=== PATIENT | male | born 1955 | race Caucasian/White ===

== ENCOUNTER 2018-07-12 06:45 | Observation (INO) | payer MEDICARE ==
[2018-07-12] VITALS (7 sets, daily range): BP systolic 169–185; BP diastolic 81–117
[~2018-07-12] VITALS: Ht 188 cm; Wt 142.6 kg
[2018-07-12 07:16] LABS: BASOPHILS % 0.4 % (0.0-1.0); EOSINOPHILS # (AUTO) 0.2 (0.0-0.4); EOSINOPHILS % 2.7 % (0.0-6.0); HEMATOCRIT 39.8 % (38.2-49.6); HEMOGLOBIN 14.1 g/dL (14.0-18.0); LYMPHOCYTES # (AUTO) 1.6 (1.0-3.2); LYMPHOCYTES % 20.5 % (18.0-39.1); MEAN CORPUSCULAR HEMOGLOBIN 30.1 pg (28-32); MEAN CORPUSCULAR HGB CONC 35.4 g/dL (31-35); MEAN CORPUSCULAR VOLUME 84.9 fL (81-99); MONOCYTES # (AUTO) 0.8 (0.2-0.8); MONOCYTES % 10.7 % (4.4-11.3); NEUTROPHILS # (AUTO) 5.1 (2.1-6.9); NEUTROPHILS % 65.2 % (38.7-80.0); PLATELET COUNT 196 x10e3/uL (140-360); RED BLOOD COUNT 4.69 x10e6/uL (4.3-5.7)
[2018-07-12] MEDS ORDERED: LABETALOL HCL 5 MG/ML 20ML VIAL IV STA (07:22)
[2018-07-12 07:30] LABS: INR 1.02; PROTHROMBIN TIME 12.6 seconds (11.9-14.5)
[2018-07-12 07:31] LABS: PARTIAL THROMBOPLASTIN TIME 30.6 seconds (23.8-35.5)
[2018-07-12 07:37] LABS: ALBUMIN 3.2 g/dL (3.5-5.0); ALBUMIN/GLOBULIN RATIO 0.8 (0.8-2.0); ANION GAP 21.3 mmol/L (8-16); CALCIUM 8.4 mg/dL (8.4-10.2); CREATININE, SERUM 5.05 mg/dL (0.72-1.25); POTASSIUM 4.3 mmol/L (3.5-5.1)
[2018-07-12] MEDS ORDERED: LOSARTAN POTAS100 MG PO (08:15)
[2018-07-12] MEDS ORDERED: HUMALOG100 UNIT/1 (08:15)
[2018-07-12] MEDS ORDERED: LANTUS 3ML100 UNITS/ SQ (08:15)
[2018-07-12] MEDS ORDERED: AMLODIPINE BESY10 MG PO (08:15)
--- NOTE | 2018-07-12 08:15 | Diagnostic Imaging Report ---
PROCEDURE: X-RAY CHEST, TWO VIEWS COMPARISON: None. INDICATIONS: DIZZINESS, HIGH BLOOD PRESSURE FINDINGS: The lungs are well-inflated. No focal airspace consolidation, pleural effusion, or pneumothorax. Cardiomediastinal contour and pulmonary vasculature are within normal limits. No acute osseous abnormalities. Multilevel degenerative disc changes of the thoracic spine. CONCLUSION: No acute cardiopulmonary abnormality. Dictated by: Giovani Huynh M.D. on 07/12/2018 at 8:22 Electronically approved by: Giovani Huynh M.D. on 07/12/2018 at 8:22
[2018-07-12] MEDS ORDERED: SODIUM CHLORIDE 0.9% 1000ML 1,000 ML IV SCH (09:15)
[2018-07-12] MEDS: SODIUM CHLORIDE 0.9% 1000ML 1,000 ML IV SCH ×3 (09:27→20:39)
[2018-07-12] MEDS: INSULIN LISPRO 100 UNIT/1 ML 3ML VIAL SQ SCH ×3 (11:59→21:45)
[2018-07-12 12:43] LABS: ANION GAP 18.9 mmol/L (8-16); CALCIUM 8.3 mg/dL (8.4-10.2); CREATININE, SERUM 4.87 mg/dL (0.72-1.25); POTASSIUM 4.9 mmol/L (3.5-5.1)
[2018-07-12] MEDS ORDERED: CLONIDINE HCL 0.1 MG TAB PO PRN (16:45)
[2018-07-12] MEDS: AMLODIPINE BESYLATE 10 MG TAB PO SCH (16:48)
[2018-07-13] VITALS: BP 171/81
[2018-07-13] MEDS: SODIUM CHLORIDE 0.9% 1000ML 1,000 ML IV SCH (02:58)
[2018-07-13 04:00] VITALS: BP 162/77
[2018-07-13 05:23] LABS: ANION GAP 15.9 mmol/L (8-16); CREATININE, SERUM 4.12 mg/dL (0.72-1.25); POTASSIUM 4.9 mmol/L (3.5-5.1)
[2018-07-13 08:00] VITALS: BP 176/87
[2018-07-13] MEDS: INSULIN LISPRO 100 UNIT/1 ML 3ML VIAL SQ SCH ×2 (08:42→11:35)
[2018-07-13] MEDS: AMLODIPINE BESYLATE 10 MG TAB PO SCH (09:03)
[2018-07-13] MEDS ORDERED: CARVEDILOL 3.125 MG TAB PO NR (10:30)
--- NOTE | 2018-07-13 10:38 | Discharge Summary ---
PRIMARY CARE DOCTOR: Lazaro Hawkins MD FINAL DIAGNOSIS: Dehydration due to heat stroke. SECONDARY DIAGNOSES 1. Jkzeq-xm-sdskiwt kidney failure. 2. Morbid obesity. 3. Hyponatremia, resolving. 4. Mild metabolic acidosis. 5. Diabetes. DIRECTOR LOSS PREVENTION: None. PROCEDURES/STUDIES PERFORMED: None. HISTORY: Per H and P. HOSPITAL COURSE: The patient was hydrated. His creatinine went from 5 to 4. His lightheadedness resolved. His muscle cramps resolved as well. At this time, the patient is stable for discharge. The patient was told to hold his lisinopril and losartan. I gave him a script for Coreg for his blood pressure control. The patient will continue to keep himself hydrated. At this time, I do not know what his baseline creatinine is, but I suspect it should continue to come down to his baseline. The patient was seen and examined today. CONDITION ON DISCHARGE: Improved. DISCHARGE MEDICATIONS: Please see medication reconciliation form. FRANK JACKSON M.D. Job#: [id number] cc:LAZARO HAWKINS MD
== END 2018-07-13 12:29 | disposition home or self-care (01) ==
LOC: ER 06:45 → INTOOBSV 09:14 → ERHOLD 09:14 → IMCU 11:05 → MED/SURG2 17:23
PROVIDERS: ADMIT Internal Medicine; ATTEND Internal Medicine
DX: T67.0XXA Heatstroke and sunstroke, initial encounter (principal); I95.1 Orthostatic hypotension; E87.2 Acidosis; E66.01 Morbid (severe) obesity due to excess calories; E11.22 Type 2 diabetes mellitus with diabetic chronic kidney disease; I12.9 Hypertensive chronic kidney disease with stage 1 through stage 4 chronic kidney disease, or unspecified chronic kidney disease; Z72.0 Tobacco use; Z80.9 Family history of malignant neoplasm, unspecified; Z82.49 Family history of ischemic heart disease and other diseases of the circulatory system; E86.0 Dehydration; X30.XXXA Exposure to excessive natural heat, initial encounter; Y93.89 Activity, other specified; Y92.830 Public park as the place of occurrence of the external cause; E87.1 Hypo-osmolality and hyponatremia; N17.9 Acute kidney failure, unspecified; Z68.41 Body mass index [BMI] 40.0-44.9, adult; Z79.4 Long term (current) use of insulin
CPT/HCPCS: 36415 ×2; 71046; 80048 ×2; 80053; 82550 ×2; 82553; 82948 ×2; 83735; 84484; 85025; 85610; 85730; 93005; 99284; G0378 ×2; J7030 ×2

== ENCOUNTER 2019-05-06 11:14 | Emergency (ER) | payer MEDICARE, OTHER ==
[~2019-05-06] VITALS: Ht 188 cm; Wt 142.4 kg
[~2019-05-06 11:14] MED LIST: AMLODIPINE BESY10 MG PO; HUMALOG100 UNIT/1; LANTUS 3ML100 UNITS/ SQ; LOSARTAN POTAS100 MG PO
[2019-05-06] MEDS ORDERED: NEOMYCIN/POLYMYX/BACITR OINT 0.9 GM PKT ONE (11:20)
[2019-05-06] MEDS ORDERED: FUROSEMIDE40 MG PO (11:25)
[2019-05-06] MEDS ORDERED: LOSARTAN POTASS25 MG PO (11:25)
[2019-05-06] MEDS ORDERED: CARVEDILOL3.125 MG PO (11:25)
[2019-05-06] MEDS ORDERED: HYDROCODONE/APAP 10MG-325MG TAB PO ONE (11:30)
== END 2019-05-06 11:55 | disposition home or self-care (01) ==
LOC: ER 11:14
DX: T24.331A Burn of third degree of right lower leg, initial encounter (principal); X17.XXXA Contact with hot engines, machinery and tools, initial encounter; Y92.008 Other place in unspecified non-institutional (private) residence as the place of occurrence of the external cause; I10 Essential (primary) hypertension; E11.9 Type 2 diabetes mellitus without complications; N28.9 Disorder of kidney and ureter, unspecified
CPT/HCPCS: 99284

== ENCOUNTER 2019-12-30 21:56 | Inpatient (IN) | payer MEDICARE, OTHER ==
[~2019-12-30] VITALS: Ht 188 cm; Wt 142.0 kg
[~2019-12-30 21:56] MED LIST changes: +CARVEDILOL3.125 MG PO; +FUROSEMIDE40 MG PO; +LOSARTAN POTASS25 MG PO
[2019-12-30] MEDS ORDERED: ASPIRIN 81 MG CHEW TAB PO ONE ×2 (22:00→23:30)
[2019-12-30] MEDS ORDERED: ACETAMINOPHEN 325 MG TAB PO ONE (22:15)
[2019-12-30] MEDS ORDERED: CEFEPIME 2 GM/NS 0.9% 100 ML 100 ML IV SCH (22:15)
[2019-12-30 22:24] LABS: BASOPHILS % 0.3 % (0.0-1.0); EOSINOPHILS # (AUTO) 0.4 (0.0-0.4); EOSINOPHILS % 4.1 % (0.0-6.0); HEMATOCRIT 38.4 % (38.2-49.6); LYMPHOCYTES # (AUTO) 0.7 (1.0-3.2); LYMPHOCYTES % 6.8 % (18.0-39.1); MEAN CORPUSCULAR HGB CONC 33.9 g/dL (31-35); MEAN CORPUSCULAR VOLUME 82.8 fL (81-99); MONOCYTES # (AUTO) 0.9 (0.2-0.8); MONOCYTES % 9.3 % (4.4-11.3); NEUTROPHILS % 79.1 % (38.7-80.0); PLATELET COUNT 215 x10e3/uL (140-360); RED BLOOD COUNT 4.64 x10e6/uL (4.3-5.7); RED CELL DISTRIBUTION WIDTH 15.8 % (11.7-14.4)
[2019-12-30 22:30] LABS: INR 1.04; PROTHROMBIN TIME 14.2 seconds (11.9-14.5)
[2019-12-30 22:31] LABS: PARTIAL THROMBOPLASTIN TIME 34.3 seconds (23.8-35.5)
[2019-12-30 22:40] LABS: ALBUMIN 3.3 g/dL (3.5-5.0); ALBUMIN/GLOBULIN RATIO 0.7 (0.8-2.0); ANION GAP 19.9 mmol/L (8-16); CALCIUM 8.3 mg/dL (8.4-10.2); CREATININE, SERUM 9.06 mg/dL (0.72-1.25); POTASSIUM 3.9 mmol/L (3.5-5.1)
[2019-12-30 22:48] LABS: CREATINE KINASE MB 3.4 ng/mL (0-5.0)
[2019-12-30 22:49] LABS: INFLUENZAE A&B ANTIGEN (RAPID) NEGATIVE (NEGATIVE); STREPTOCOCCUS GRP A ANTIGEN NEGATIVE (NEGATIVE)
--- NOTE | 2019-12-30 23:35 | Diagnostic Imaging Report ---
EXAMINATION: CHEST SINGLE (PORTABLE) INDICATION: Chest pain COMPARISON: Chest x-ray 07/12/2018 FINDINGS: Motion during the exam limits evaluation. TUBES and LINES: None. LUNGS: Low lung volumes. Subtle bilateral infrahilar haziness. Prominent central pulmonary vasculature. PLEURA: No pleural effusion or pneumothorax. HEART AND MEDIASTINUM: The cardiomediastinal silhouette is borderline prominent. BONES AND SOFT TISSUES: No acute osseous lesion. Soft tissues are unremarkable. UPPER ABDOMEN: No free air under the diaphragm. IMPRESSION: Subtle bilateral infrahilar haziness can be due to atelectasis or pneumonia although motion during the exam limits evaluation. Pulmonary vascular congestion with borderline cardiomegaly. Signed by: Gian Huerta DO on 12/30/2019 11:32 PM
[2019-12-31] MEDS ORDERED: ACETAMINOPHEN 325 MG TAB PO PRN
[2019-12-31] MEDS ORDERED: SODIUM CHLORIDE FLUSH 10 ML SYR INJ PRN
[2019-12-31] MEDS ORDERED: ONDANSETRON HCL INJ 2MG/ML 2ML 2 MG/ML VIAL IV PRN
[2019-12-31] MEDS: AZITHROMYCIN 500MG/SOD CHL 0.9% 250ML BAG IV SCH ×2 (00:20→23:36)
--- NOTE | 2019-12-31 05:20 | NUR ---
pt noted c o2 sat 90-91% on monitor. to room, pt noted sleeping, resp even and unlabored on o2 4l nc. pt awakened and encouraged to take deep breaths. o2 sat increased to 94%. md informed. neb treatment ordered. rt called and informed.
[2019-12-31] MEDS ORDERED: ALBUTEROL/IPRATROPIUM 3 ML NEB NEB ONE (05:30)
[2019-12-31 05:34] LABS: BASOPHILS % 0.3 % (0.0-1.0); EOSINOPHILS # (AUTO) 0.2 (0.0-0.4); EOSINOPHILS % 2.1 % (0.0-6.0); HEMATOCRIT 32.9 % (38.2-49.6); HEMOGLOBIN 11.1 g/dL (14.0-18.0); LYMPHOCYTES # (AUTO) 0.7 (1.0-3.2); MEAN CORPUSCULAR HGB CONC 33.7 g/dL (31-35); MEAN CORPUSCULAR VOLUME 82.9 fL (81-99); MONOCYTES # (AUTO) 1.1 (0.2-0.8); MONOCYTES % 11.1 % (4.4-11.3); NEUTROPHILS # (AUTO) 7.6 (2.1-6.9); NEUTROPHILS % 79.2 % (38.7-80.0); PLATELET COUNT 188 x10e3/uL (140-360); RED BLOOD COUNT 3.97 x10e6/uL (4.3-5.7); RED CELL DISTRIBUTION WIDTH 15.9 % (11.7-14.4)
[2019-12-31] MEDS ORDERED: CEFEPIME HCL 2 GM/SOD CHL 0.9% 100 ML BAG IV SCH (06:00)
[2019-12-31 06:03] LABS: CREATINE KINASE MB 2.3 ng/mL (0-5.0)
[2019-12-31 06:17] LABS: ALBUMIN 2.7 g/dL (3.5-5.0); ALBUMIN/GLOBULIN RATIO 0.7 (0.8-2.0); ANION GAP 17.1 mmol/L (8-16); CALCIUM 7.3 mg/dL (8.4-10.2); CREATININE, SERUM 10.16 mg/dL (0.72-1.25); POTASSIUM 4.1 mmol/L (3.5-5.1)
--- NOTE | 2019-12-31 06:19 | NUR ---
[facility] dialysis paged to setup peritoneal dialysis for this am per dr hyde.
[2019-12-31 06:23] LABS: BILIRUBIN,URINE NEGATIVE (NEGATIVE); CLARITY,URINE CLEAR (CLEAR); COLOR,URINE YELLOW (YELLOW); KETONES,URINE NEGATIVE (NEGATIVE); LEUKOCYTE ESTERASE ,URINE NEGATIVE (NEGATIVE); NITRITE,URINE NEGATIVE (NEGATIVE); PROTEIN,URINE DIPSTICK 2+ (NEGATIVE); URINE UROBILINOGEN 0.2 mg/dL (0.2 - 1)
[2019-12-31 06:50] LABS: BACTERIA,URINE RARE /HPF; EPITHELIAL CELLS,URINE FEW /LPF
[2019-12-31] MEDS ORDERED: CALCIUM ACETAT667 M1 PO (07:08)
[2019-12-31] MEDS ORDERED: CARVEDILOL6.25 MG PO (07:08)
[2019-12-31] MEDS ORDERED: AMLODIPINE BESY10 MG PO (07:08)
[2019-12-31] MEDS ORDERED: ASPIRIN EC81 MG PO (07:08)
[2019-12-31] MEDS ORDERED: FUROSEMIDE80 MG PO (07:11)
[2019-12-31] MEDS ORDERED: GENTAMICIN SULF15 GM TOP (07:11)
[2019-12-31] MEDS ORDERED: TUMS200 MG PO (07:11)
--- NOTE | 2019-12-31 07:36 | NUR ---
Nursing report received from Armando BLACK.
--- NOTE | 2019-12-31 09:08 | NUR ---
Bedside echocardiagram currently being performed
--- NOTE | 2019-12-31 09:45 | Diagnostic Imaging Report ---
EXAMINATION: CHEST SINGLE (PORTABLE) INDICATION: Shortness of breath COMPARISON: None FINDINGS: LINES/TUBES:None LUNGS:The lungs are moderately inflated. There is perihilar fullness and indistinctness of the pulmonary vasculature. No definite focal consolidation. PLEURA:No pleural effusion or pneumothorax. MEDIASTINUM:The cardiomediastinal silhouette appears unchanged in size and shape. BONES/SOFT TISSUES:No acute osseous injury. ABDOMEN:No free air under the diaphragm. IMPRESSION: No significant internal change. Signed by: Meliton Thompson MD on 12/31/2019 9:42 AM
[2019-12-31] MEDS: ASPIRIN 81 MG CHEW TAB PO SCH (11:00)
[2019-12-31] MEDS: METOPROLOL SUCCINATE 25 MG TAB XL PO SCH (11:00)
--- NOTE | 2019-12-31 11:30 | NUR ---
Nursing report given to Grace BLACK
--- NOTE | 2019-12-31 11:35 | Consultation ---
DATE OF CONSULTATION: 12/31/2019 Cardiology Consultation CONSULTING PHYSICIAN: Jose Clifford MD, Interventional Cardiology. REASON FOR CONSULTATION: Abnormal troponin. HISTORY OF PRESENT ILLNESS: Deion is a 64-year-old pleasant man with history of end-stage renal disease on peritoneal dialysis, history of dyslipidemia and hypertension, who presents with several day onset of cough, pleuritic-type chest discomfort and shortness of breath. He was diagnosed with pneumonia and admitted for further treatment. Incidentally, troponin level was mildly elevated at 0.6 without significant increase on serial testing. Creatinine is 10.1. EKG shows sinus tachycardia without ST elevation. REVIEW OF SYSTEMS: A 12 system reviewed negative except for as noted above. PAST MEDICAL HISTORY: As per HPI. SOCIAL HISTORY: Denies smoking, alcohol, or drugs. FAMILY HISTORY: Noncontributory. PHYSICAL EXAMINATION: VITAL SIGNS: Heart rate 110, blood pressure 120/80, O2 saturation 97%, BMI 40. GENERAL: No acute distress. Alert. NECK: No JVD. CHEST: Decreased breath sounds in bilateral bases with scattered rales. CARDIOVASCULAR: Regular rate and rhythm. Normal S1 and S2. No S3 or S4. ABDOMEN: Soft. Bowel sounds positive. EXTREMITIES: No edema. Warm extremities. CARDIOVASCULAR MEDICATIONS: Reviewed. Aspirin 81 mg daily, cefepime, and azithromycin. STUDIES: Reviewed. Creatinine 10.1, glucose 220, hemoglobin 11.1, platelets 188. INR 1.04. AST 9, ALT 7. ASSESSMENT AND PLAN: 1. A 64-year-old man presents with pneumonia, underlying ESRD on scheduled peritoneal dialysis. 2. Borderline troponin leak likely related to decreased renal clearance and increase of demand supply mismatch in the setting of active pneumonia (type 2 NH). Clinical presentation inconsistent with acute coronary syndrome at this point. RECOMMENDATION: Aspirin as blood pressure allows. Consider adding beta-gurvinder as well as statin and obtain echocardiogram. We will follow with you. Jose Clifford MD AFV/MODL /[id number]
[2019-12-31 12:21] VITALS: BP 132/78
[2019-12-31 12:25] VITALS: BP 132/78
--- NOTE | 2019-12-31 12:25 | NUR ---
PATIENT RECEIVED FROM ER PER STRETCHER. ALERT AND VERBALLY RESPONSIVE, DENIED PAIN AT THIS TIME. SKIN WARM AND DRY TO TOUCH, RESPIRATION EVEN AND UNLABORED. ABDOMEN SOFT, LARGE AND ROUND. PERITONEAL DIALYSIS CATHETER TO LOWER ABDOMEN, TELEMETRY B[address] BED IN LOWER POSITION, CALL LIGHT AT REACH. INSTRUCTED TO CALL FOR ASSISTANCE NEEDED.
[2019-12-31] MEDS ORDERED: DEXTROSE 50% SYRINGE 50 ML IV PRN ×2 (12:45→13:30)
--- NOTE | 2019-12-31 14:02 | History and Physical ---
CHIEF COMPLAINT: Chest pain. HISTORY OF PRESENT ILLNESS: A 64-year-old male, morbidly obese, history of hypertension, peritoneal dialysis, presents to the ED with substernal chest pain that began yesterday in the evening time. The patient reports that he was doing his peritoneal dialysis and while he was lying in the bed, began to have substernal chest pain. He reports the pain was pretty consistent more pressure-like in nature. No radiation to the shoulder or arm. No associated nausea or vomiting. The patient does see a well reactivator operator somewhere in [place], but he does not know the name of the physician. The patient came in due to excruciating chest pain. The patient was seen and evaluated at bedside on the medical floor. He is currently doing well with no other issues at this time. The pressure, he reports is still present, occasionally on and off. Cardiology and Nephrology have been consulted. REVIEW OF SYSTEMS: Pertinent positives: Substernal chest pain. The rest of 14-point review of systems have been reviewed with the patient and are negative. ALLERGIES: NO KNOWN DRUG ALLERGIES. HOME MEDICATIONS: Amlodipine, aspirin, PhosLo, Tums, losartan, Coreg, Lasix, Lantus, and Humalog. PAST MEDICAL HISTORY: Type 2 diabetes, hypertension, peritoneal dialysis, morbidly obese, and history of CAD. PAST SURGICAL HISTORY: PD catheter. FAMILY HISTORY: Reports hypertension and diabetes. SOCIAL HISTORY: No drugs. No alcohol. Does not smoke. Good social support. PHYSICAL EXAMINATION: VITAL SIGNS: Temperature is 97.2, pulse 90, respiratory rate is 20, blood pressure 132/78, and pulse ox 96% on room air. GENERAL: Not in acute distress. Alert and oriented x3. Cooperative on examination. HEENT: Head; normocephalic, atraumatic. Eyes; pupils are equal, round, and reactive to light bilaterally. Extraocular movements intact bilaterally. Throat; no evidence of erythema or exudates in the posterior pharynx. Has poor dentition. NECK: Supple. Good range of motion. PULMONARY: Clear to auscultation bilaterally. No wheezing, no rales, no rhonchi, no crackles appreciated. CARDIOVASCULAR: Positive S1 and S2. No murmurs, rubs, or gallops appreciated. ABDOMEN: Soft, nondistended, and nontender to palpation. Bowel sounds present. MUSCULOSKELETAL: Strength is 5/5 throughout. No evidence of any muscle deficits on examination. No weakness appreciated. NEUROLOGIC: Cranial nerves 2 through 12 grossly intact. No evidence of any neurological deficits on exam. SKIN: Intact. Warm to touch. Good cap refill. PSYCHIATRIC: Normal affect and mood. EXTREMITIES: No edema. Good range of motion throughout. LABORATORY FINDINGS: Show white count 9.6, hemoglobin 11.1, hematocrit is 32.9, and platelets of 188. Coagulation reviewed, stable. Chemistry reviewed; sodium 134, potassium 4.1, chloride 99, bicarb 23, anion gap of 17, BUN 17, creatinine is 10.16, and glucose is 220. Albumin is 2.7. Troponins are elevated, currently 0.630. Urinalysis; 2+ protein, 6 to 10 rbc's and wbc's. Flu negative. Group A strep was negative. MICROBIOLOGY: Blood cultures pending. Throat cultures, no growth to date. Urine cultures are pending. IMAGING STUDIES: Chest x-ray shows no significant interval change. Initial chest x-ray on admission shows some atelectasis and possible underlying pneumonia. Pulmonary and vascular congestion noted. IMPRESSION: 1. Chest pain, rule out acute coronary syndrome. 2. End-stage renal disease, on peritoneal dialysis. 3. Hypertension. 4. Type 2 diabetes. PLAN: At this time, cardiac enzymes are being trended slightly above his baseline. Continue with cardioprotective medications including aspirin and statin. Cardiology has been consulted to come and evaluate the patient further to see if any further workup is needed. As for his PD, Nephrology has been consulted. He will receive peritoneal dialysis later today. Otherwise, we are going to resume same home medications with no changes. Continue with IV antibiotics with cefepime for now. PT and OT evaluation. Heparin for DVT prophylaxis. MD LEIGHANN Zapien/LARISA /[id number]
[2019-12-31 14:15] LABS: CREATINE KINASE MB 2.2 ng/mL (0-5.0)
[2019-12-31 14:51] LABS: FREE T4 (FREE THYROXINE) 0.74 ng/dL (0.8-1.8); THYROID STIMULATING HORMONE 1.289 uIU/mL (0.350-4.940)
--- NOTE | 2019-12-31 15:30 | NUR ---
PATIENT IN BED RESTING WITH EYES CLOSED, NO S/S OF DISCOMFORT.
[2019-12-31 15:41] VITALS: BP 126/77
[2019-12-31] MEDS: INSULIN LISPRO 100 UNIT/1 ML 3ML VIAL SQ SCH ×2 (16:30→21:49)
--- NOTE | 2019-12-31 19:00 | NUR ---
Patient visited in room during nursing rounds. Patient alert and oriented x3. No distress or discomfort noted. Pt recently started on peritoneal dialysis via access on Left upper quadrant of stomach. Call zarate within reach. Will monitor closely.
--- NOTE | 2019-12-31 19:12 | Consultation ---
DATE OF CONSULTATION: 12/31/2019 Renal Consult REASON FOR CONSULT: ESRD. HISTORY OF PRESENT ILLNESS: This is a 64-year-old male with end-stage renal disease, on peritoneal dialysis, who has been having chest pain, cough, and shortness of breath. Admitted with substernal chest pain. Currently feels better. The patient was admitted to the emergency room, diagnosed with pneumonia, was found to have high troponin and Cardiology was consulted. PAST MEDICAL HISTORY: 1. Coronary artery disease. 2. Hypertension. 3. Obesity. 4. Dyslipidemia. 5. ESRD on peritoneal dialysis. 6. Asthma. PAST SURGICAL HISTORY: PD catheter placement. FAMILY HISTORY: Noncontributory. ALLERGIES: NEGATIVE. REVIEW OF SYSTEMS: Denies any nausea, vomiting, constipation. Also denies any wheezing, but positive shortness of breath. Denies any new coughing. Denies any changes neurologically. Denies any change in vision. No changes in hearing. Denies any blood in stool, blood in the urine or any skin changes. Positive for chest pain. No supine dyspnea. Positive dyspnea upon exertion. Basically review of systems negative except as above. PHYSICAL EXAMINATION: VITAL SIGNS: Blood pressure 139/89, pulse 88. GENERAL: Alert, following commands. HEENT: Pupils equal, reactive to light and accommodation. NECK: No JVD. No bruit. LUNGS: Rhonchi. No rales. HEART: Regular rate and rhythm. No S3, no S4. ABDOMEN: Nontender, nondistended. No hepatomegaly or splenomegaly. EXTREMITIES: No clubbing, no cyanosis, no edema. NEUROLOGIC: Cranial nerves 2 through 12 are grossly intact. Sensation intact. Motor intact. LABORATORY DATA: White count 9.6, hemoglobin 11.1, platelets 188. Sodium 134, potassium 4.1, chloride 99, creatinine 10.1, albumin 2.7. Chest x-ray, no significant changes today, but yesterday diagnosed with bilateral infrahilar haziness, can be atelectasis or pneumonia. CURRENT MEDICATIONS: Includes cefepime, Tylenol, Zofran, metoprolol. ASSESSMENT AND PLAN: 1. End-stage renal disease, on peritoneal dialysis. We will start the patient back on his peritoneal dialysis. He did get it last night since the patient was admitted late at night. 2. Anemia of chronic disease. Currently stable. 3. Type 2 diabetes mellitus. We will monitor his glucose. 4. Hypertension. The patient was restarted on his meds. We might need to adjust them. We will monitor for the next 24 hours. 5. Pneumonia, currently on IV antibiotics. The patient is starting to feel better. Curtis Bello MD MA/LARISA /[id number]
[2019-12-31 20:00] VITALS: BP 134/70
--- NOTE | 2019-12-31 20:12 | Consultation ---
DATE OF CONSULTATION: 12/31/2019 Endocrine Consultation This is a patient of Dr. Morgan. Thank you very much for referring this patient. HISTORY OF PRESENT ILLNESS: This is a 64-year-old white male gentleman, who is referred to me for evaluation of diabetes mellitus. The patient is known to me from his previous followup several years back. The patient is a known diabetic for almost 10-15 years. He was on insulin before. The patient mentioned end-stage renal disease and has been on peritoneal dialysis, which was started about 6-8 months back. For a brief period of time, the patient has been off the insulin now since he went into end-stage renal disease. This time, he came with history of chest pain. He also has history of hypertension, hyperlipidemia and is on medications at home including metoprolol and Lipitor. PHYSICAL EXAMINATION: GENERAL: Today, the patient is alert, awake, little bit apprehensive. He is moderately overweight. VITAL SIGNS: His heart rate is around 78, blood pressure 140/80 mmHg. HEENT: Essentially unremarkable. Thyroid is palpable. Clinically, he is near euthyroid. CHEST: Bilateral vesicular breathing. He has bilateral bronchospasm and basilar rales. CARDIOVASCULAR: First and second heart sounds. There is no 3rd or 4th heart sound. Ejection systolic murmur is grade 2/6. EXTREMITIES: The patient has evidence of mild pedal edema. CLINICAL IMPRESSION: Chest pain, diabetes mellitus type 2 with complications, end-stage renal failure on peritoneal dialysis, hypertension, hyperlipidemia. PLAN: At this time is to do hemoglobin A1c, thyroid function test. Monitor the blood sugars closely and start him back on the Humalog and the Lantus depending upon his glycohemoglobin and morning blood sugars. Thank you for referring this patient. I will be following this patient with you. MD KATIUSKA Mars/LARISA /[id number]
[2019-12-31 21:00] VITALS: BP 134/70
[2019-12-31] MEDS ORDERED: ATORVASTATIN 40 MG TAB PO SCH (21:00)
[2019-12-31] MEDS: HEPARIN SOD (PORCINE) 5,000 UNIT/ML VIAL SC SCH (21:49)
[2019-12-31] MEDS ORDERED: SODIUM CHLORIDE 0.9% 250ML 250 ML ONE (23:33)
[2020-01-01] VITALS (7 sets, daily range): BP systolic 111–143; BP diastolic 55–75
[2020-01-01 06:22] LABS: BASOPHILS # (AUTO) 0.1 (0.0-0.1); BASOPHILS % 0.6 % (0.0-1.0); EOSINOPHILS # (AUTO) 0.5 (0.0-0.4); EOSINOPHILS % 5.3 % (0.0-6.0); HEMATOCRIT 32.4 % (38.2-49.6); HEMOGLOBIN 10.9 g/dL (14.0-18.0); LYMPHOCYTES # (AUTO) 0.6 (1.0-3.2); LYMPHOCYTES % 7.2 % (18.0-39.1); MEAN CORPUSCULAR HEMOGLOBIN 27.8 pg (28-32); MEAN CORPUSCULAR HGB CONC 33.6 g/dL (31-35); MEAN CORPUSCULAR VOLUME 82.7 fL (81-99); MONOCYTES # (AUTO) 1.1 (0.2-0.8); MONOCYTES % 12.8 % (4.4-11.3); NEUTROPHILS # (AUTO) 6.2 (2.1-6.9); NEUTROPHILS % 73.6 % (38.7-80.0); PLATELET COUNT 174 x10e3/uL (140-360); RED BLOOD COUNT 3.92 x10e6/uL (4.3-5.7); RED CELL DISTRIBUTION WIDTH 15.9 % (11.7-14.4)
[2020-01-01 06:55] LABS: ANION GAP 18.8 mmol/L (8-16); CALCIUM 7.2 mg/dL (8.4-10.2); CREATININE, SERUM 9.68 mg/dL (0.72-1.25); POTASSIUM 3.8 mmol/L (3.5-5.1)
--- NOTE | 2020-01-01 07:00 | NUR ---
BEDSIDE SHIFT REPORT RECEIVED FROM THE ASSOCIATE DIRECTOR FINANCE RN. EDUCATED PT ABOUT FALL PRECAUTIONS. PT VERBALIZED UNDERSTANDING. CALL LIGHT WITH IN EASY REACH. INSTRUCTED PT TO USE CALL LIGHT FOR ALL THE NEEDS. BED IS LOW AND LOCKED. SIDE RAILS X2. PT DENIES NEEDS AT THIS TIME.
[2020-01-01] MEDS: METOPROLOL SUCCINATE 25 MG TAB XL PO SCH (08:14)
[2020-01-01] MEDS: INSULIN LISPRO 100 UNIT/1 ML 3ML VIAL SQ SCH ×3 (08:30→16:21)
[2020-01-01] MEDS: ASPIRIN 81 MG CHEW TAB PO SCH (08:33)
[2020-01-01] MEDS ORDERED: SODIUM CHLORIDE 0.9% 1000ML 1,000 ML IV SCH (08:53)
[2020-01-01] MEDS ORDERED: CEFEPIME 2 GM/NS 0.9% 100 ML 100 ML IV SCH (09:00)
[2020-01-01] MEDS: HEPARIN SOD (PORCINE) 5,000 UNIT/ML VIAL SC SCH (09:00)
[2020-01-01] MEDS ORDERED: METOPROLOL SUCCINATE 25 MG TAB XL PO SCH (09:00)
[2020-01-01] MEDS ORDERED: CEFEPIME HCL 2 GM/SOD CHL 0.9% 100 ML BAG IV SCH (09:00)
--- NOTE | 2020-01-01 10:30 | NUR ---
PAGED DR. MOBLEY REGARDING IV FLUIDS ORDER.
--- NOTE | 2020-01-01 10:57 | NUR ---
CALL BACK RECEIVED FROM DR. MOBLEY. NORMAL SALINE AT 50 ML/HR PER THE
--- NOTE | 2020-01-01 12:00 | Progress Note ---
DATE: 01/01/2020 Cardiology Progress Note SUBJECTIVE: Shortness of breath and cough improved. Denies any active chest discomfort. OBJECTIVE: VITAL SIGNS: Temperature 99.5, heart rate 87, blood pressure 136/73, respiratory rate 20, and O2 saturation 92%. BMI of 40.1. GENERAL: In no acute distress. Alert. NECK: No JVD. CHEST: Clear to auscultation. CARDIOVASCULAR: Regular rate and rhythm. Normal S1, S2. Systolic ejection murmur /6. No S3. No S4. ABDOMEN: Soft. Bowel sounds positive. EXTREMITIES: Trace edema. CARDIOVASCULAR MEDICATIONS: Reviewed. The patient is on: 1. Cefepime. 2. Azithromycin. 3. Aspirin 81 mg daily. 4. Heparin 5000 subcu q.12 hours. 5. Atorvastatin 40 mg at bedtime. 6. Metoprolol succinate 12.5 mg daily. LABORATORY DATA: Studies reviewed. Sodium 134, potassium 3.8, chloride 100, bicarbonate 19, BUN 78, and creatinine 9.68. Glucose 172. White blood cells 8.44, hemoglobin 10.9, and platelets 174. PT 14.2. PTT 34.3. INR 1.04. AST 9, ALT 7, total bilirubin 0.7, and alkaline phosphatase 64. ASSESSMENT: 1. A 64-year-old man with pneumonia, acute systolic heart failure, new diagnosis with LVEF of 35%. 2. End-stage renal disease on peritoneal dialysis. 3. Diabetes and dyslipidemia. PLAN: Indications, alternatives, risks, and benefits for coronary angiography and possible coronary intervention have been discussed with the patient who agrees to proceed. Wound care for this afternoon to keep n.p.o. as of now. Continue current cardiovascular medications otherwise. Further recommendations to follow. Jose Clifford MD AFSallie/MODPhuong /[id number]
--- NOTE | 2020-01-01 12:06 | NUR ---
7177 update from floor clinical staff pharmacist Nestor told left ac iv patent and [facility] for Dr Van done Report handoff to Michael Dunham. Potential procedure time 2pm. ds/rn
[2020-01-01] MEDS ORDERED: HEPARIN SOD (PORCINE) 1000 UNIT/ML 30ML ONE (14:07)
[2020-01-01] MEDS ORDERED: MIDAZOLAM HCL 2 MG/2 ML VIAL ONE (14:07)
[2020-01-01] MEDS ORDERED: FENTANYL CITRATE/PF 100MCG/2 ML INJ ONE (14:08)
[2020-01-01] MEDS ORDERED: LIDOCAINE HCL 2% LOCAL 20 ML VIAL ONE (14:08)
[2020-01-01] MEDS ORDERED: IOPAMIDOL 370 MG/ML 200 ML INFUS..BTL INJ ONE (14:09)
[2020-01-01] MEDS ORDERED: HEPARIN SOD/SOD CHLORIDE 2,000 ML ONE (14:09)
[2020-01-01] MEDS ORDERED: SODIUM CHLORIDE 0.9% 250ML 250 ML ONE (14:09)
[2020-01-01] MEDS ORDERED: NITROGLYCERIN/D5W 200 MCG/ML 0 ML ONE (14:10)
--- NOTE | 2020-01-01 14:10 | NUR ---
PT OFF UNIT FOR PROCEDURE IN SAFE CONDITION.
[2020-01-01 14:32] LABS: BASOPHILS # (AUTO) 0.1 (0.0-0.1); BASOPHILS % 0.6 % (0.0-1.0); EOSINOPHILS # (AUTO) 0.6 (0.0-0.4); EOSINOPHILS % 6.9 % (0.0-6.0); HEMATOCRIT 32.1 % (38.2-49.6); HEMOGLOBIN 10.4 g/dL (14.0-18.0); LYMPHOCYTES # (AUTO) 0.7 (1.0-3.2); LYMPHOCYTES % 8.1 % (18.0-39.1); MEAN CORPUSCULAR HEMOGLOBIN 27.5 pg (28-32); MEAN CORPUSCULAR HGB CONC 32.4 g/dL (31-35); MEAN CORPUSCULAR VOLUME 84.9 fL (81-99); MONOCYTES # (AUTO) 1.2 (0.2-0.8); NEUTROPHILS # (AUTO) 5.9 (2.1-6.9); PLATELET COUNT 175 x10e3/uL (140-360); RED BLOOD COUNT 3.78 x10e6/uL (4.3-5.7); RED CELL DISTRIBUTION WIDTH 16.2 % (11.7-14.4)
[2020-01-01 14:46] LABS: CALCIUM 7.4 mg/dL (8.4-10.2); CREATININE, SERUM 10.19 mg/dL (0.72-1.25)
--- NOTE | 2020-01-01 15:30 | NUR ---
PT BACK TO UNIT AFTER PROCEDURE. PT NEEDS TO BE TRANSFERRED TO ANOTHER FACILITY PER THE DAIRY TECHNOLOGIST TRANSFER REPORT. QA AUDITOR AWARE. PT IS AAOX4. RIGHT GROIN DRESSING CDI. PT DENIES CHEST PAIN AT THIS TIME. NO DISTRESS NOTED. INFORMED PT TO BE STRAIGHT ON BED TILL 1900 PER THE TRANSFER REPORT. PT VERBALIZED UNDERSTANDING. PT DENIES NEEDS AT THIS TIME.
--- NOTE | 2020-01-01 15:35 | NUR ---
PAGED DR. MONIQUE REGARDING PT NPO STATUS AND HEPARIN DRIP. WAITING FOR THE RESPONSE FROM THE
--- NOTE | 2020-01-01 16:00 | NUR ---
CALL BACK RECEIVED FROM DR. MONIQUE. ADA DIET FOR DINNER THEN BACK TO NPO. START HEPARIN DRIP ACS PROTOCOL WITHOUT BOLUS PER THE DR. INFORMED THE SAME TO PHARMACY. PLACED HEPARIN DRIP ORDER PER THE INSTRUCTION FROM PHARMACY.
--- NOTE | 2020-01-01 16:15 | NUR ---
PAGED LAB REGARDING PTT.
--- NOTE | 2020-01-01 16:43 | Progress Note ---
DATE: 01/01/2020 Medicine Progress Note SUBJECTIVE: The patient is doing well today with no complaints. He is scheduled for left heart catheterization later today. OBJECTIVE: VITAL SIGNS: Temperature 99.2, pulse 84, respiratory rate is 22, blood pressure 111/71, pulse ox 92% on room air. GENERAL: Not in acute distress. Alert and oriented x3. Cooperative on examination. HEENT: Head; normocephalic, atraumatic. Eyes; pupils are equal, round, and reactive to light bilaterally. Extraocular movements intact bilaterally. Throat; no evidence of erythema or exudates in the posterior pharynx. Has poor dentition. NECK: Supple. Good range of motion. PULMONARY: Clear to auscultation bilaterally. No wheezing, no rales, no rhonchi, no crackles appreciated. CARDIOVASCULAR: Positive S1 and S2. No murmurs, rubs, or gallops appreciated. ABDOMEN: Soft, nondistended, and nontender to palpation. Bowel sounds present. MUSCULOSKELETAL: Strength is 5/5 throughout. No evidence of any muscle deficits on examination. No weakness appreciated. NEUROLOGIC: Cranial nerves II through XII grossly intact. No evidence of any neurological deficits on exam. SKIN: Intact. Warm to touch. Good cap refill. PSYCHIATRIC: Normal affect and mood. EXTREMITIES: No edema. Good range of motion throughout. LABORATORY FINDINGS: Show white count 8.4, hemoglobin 10.8, hematocrit is 32, and platelets of 174. Chemistry; sodium 134, potassium 3.8, chloride 100, bicarb 19, anion gap of 18, BUN is 78, creatinine is 9.68. MICROBIOLOGY: All cultures so far no growth today. IMAGING STUDIES: None. IMPRESSION: 1. Chest pain, rule out ACS, scheduled for left heart catheterization later today. 2. End-stage renal disease, on PD. 3. Hypertension. 4. Type 2 diabetes. PLAN: At this time, the patient is scheduled for left heart catheterization later today by Cardiology. Continue with n.p.o. Anti-platelet therapy, statins. PD as per Nephrology. Labs reviewed and stable. Continue same plan of care. Monitor closely. Plan to discharge tomorrow if stable. No further workup needed include by the consultants. Rita Mogran MD JSDavid/MODL /[id number]
[2020-01-01] MEDS ORDERED: HEPARIN 25,000 UNIT 1,000 UNIT in DEXTROSE 5% 250ML 250 ML IV SCH (17:00)
--- NOTE | 2020-01-01 18:00 | NUR ---
HEPARIN DRIP STARTED 10 ML/HR AFTER CONFIRMING WITH PHARMACY. NEXT PTT AT MIDNIGHT. NEW IV STARTED 20 G RIGHT HAND. PT TOLERATED WELL. DENIED FURTHER NEEDS
--- NOTE | 2020-01-01 19:00 | NUR ---
BEDSIDE SHIFT REPORT GIVEN TO THE KETTLE ROOM HELPER RN. HEPARIN DRIP RUNNING. PT IS AAOX4. PT DENIED FURTHER NEEDS.
--- NOTE | 2020-01-01 19:30 | NUR ---
1st call attempt to give report to receiving nurse at [facility] via Emily at transfer center. Was told by Emily that receiving nurse not ready to get report yet. SOLEDAD (Bianca) aware.
--- NOTE | 2020-01-01 19:30 | NUR ---
LUIS TO TRANSFER PT TO MED CENTER PER DR. EDEN. CONTINUE SAME MEDS PER THE INFORMED THE SAME TO FOREIGN SERVICE TEACHER RN.
--- NOTE | 2020-01-01 19:58 | NUR ---
2nd attempt to give report to receiving nurse but was notified by Emily from transfer center that the receiving nurse is not yet ready to get report and will just call whenever he/she is ready to get report. Emily instructed ok to go ahead and transfer the patient via ambulance even if report has not been called yet. Metal Hardener (Bianca Galdamez) aware and has consented the transfer.
--- NOTE | 2020-01-01 20:19 | NUR ---
EMT on the unit gathering MOT paper and obtaining report from night nurse (German). Pt aware he is about to be transferred to [facility]. Telemetry box off of patient and tele office notified pt is leaving.
--- NOTE | 2020-01-01 20:26 | NUR ---
Patient was transferred safely via stretcher bed and accompanied by EMT leaving the unit and sent patient via ambulance to [facility]. Report at this time has not been given and awaiting still on their call back for nurse (German) to give report to receiving nurse.
--- NOTE | 2020-01-01 20:45 | NUR ---
Gave phone report to Lucie Garvey (receiving nurse) for patient going to [id number]. Nurse aware of patient information and that pt is on his way via ambulance to their hospital.
[2020-01-01] MEDS ORDERED: INSULIN GLARGINE 100 UNITS/ML VIAL SQ SCH (21:00)
--- NOTE | 2020-01-02 10:41 | Operative Report ---
DATE OF PROCEDURE: 01/01/2020 SURGEON: Jose Clifford MD STUDY: Cardiac catheterization. PROCEDURE INDICATION: Non-ST elevation myocardial infarction. PROCEDURE PERFORMED: 1. Left heart catheterization. 2. Selective coronary angiography. 3. Right common femoral artery 6-Russian Angio-Seal arteriotomy. PROCEDURE SUMMARY: After consent was obtained, the patient was prepped and draped in a sterile fashion. The right femoral site was locally infiltrated with 2% lidocaine and access was obtained with micropuncture kit. A 6-Russian sheath was placed and catheters were advanced over a leading J-wire to the proximal ascending aorta. A JL4 was used for engagement of left main, JR4 for engagement of right coronary artery and pigtail catheter across the aortic valve. Angiography was performed in multiple views. FINDINGS: The following findings were observed. 1. LV pressure was 119/16 with end-diastolic pressure of 33. 2. Aortic pressure was 119/72. 3. LV-gram reveals severe impairment in left ventricular systolic function with left ventricular ejection fraction of 30% to 35%. Akinesis of inferior wall of LV myocardium is observed (regional wall motion abnormality). 4. Left main is large in caliber, ostially 30%, distally 30% stenosis. The LAD has an area of 50% stenosis prior to giving a diagonal. Several diagonals arise, some with ostial stenosis of 60%. However, they are all small in caliber. 5. Multiple septal perforators arise from the LAD. The mid LAD has 50% and distal LAD has tandem 70% diffuse stenosis. In the distal LAD, additional collaterals arise giving perfusion to ostially occluded obtuse marginal, separate to collaterals. The apical most segment of LAD has an area of 60% focal stenosis at a wrap-around segment. 6. The circumflex gives two obtuse marginals. The second obtuse marginal has proximal 100% stenosis and fills distally via grade 2 collaterals. 7. The right coronary artery is dominant. It has 70% to 80% tandem lesions in the proximal and mid portion. At the crux level, there is a 90% to 95% area of focal stenosis prior to giving the RPDA and RPLV. CONCLUSION: Severe multivessel coronary artery disease. RECOMMEND: Evaluation for aortic coronary bypass in this patient with diabetes, heart failure, and multivessel CAD. Alternatively, it seems too high risk for bypass, can consider PCI of RCA and LAD. Transfer initiated for high-level for CAB evaluation MD IZABEL Nolen/LARISA /[id number] MTDD
--- NOTE | 2020-01-03 04:45 | Discharge Summary ---
FINAL DISCHARGE DIAGNOSES: 1. Status post left heart catheterization for severe CAD needing CABG evaluation-transferred to [facility] under CV surgery for CABG. 2. End-stage renal disease, on peritoneal dialysis. 3. Hypertension. 4. Type 2 diabetes. CONSULTANTS: Cardiology and Nephrology. VITAL SIGNS: Temperature 96, pulse 83, respiratory rate 18, blood pressure 111/64, and pulse ox 94% on room air. LABORATORY DATA: White count 8.4, hemoglobin 10.4, hematocrit is 32, and platelets of 175. Coagulation; PT 14, INR 1, PTT 34. Chemistry; sodium 136, potassium 4, chloride 101, bicarb 23, anion gap of 16, BUN is 81, creatinine is 10.1, and calcium is 7.4. Troponins were elevated at 0.554 in the last reading. TSH is 1.289. Urinalysis is negative. Serology flu and group A strep was negative. MICROBIOLOGY: Blood cultures negative. Throat cultures were negative. Urine cultures were negative. IMAGING STUDIES: Chest x-ray on 12/31/2019 shows no significant interval change. HOSPITAL COURSE: This is a 64-year-old male, morbidly obese with multiple comorbidities, comes into the ED with complaints of substernal chest pain that began several days prior to arrival to the ED. The patient also reports that he is also on peritoneal dialysis as well. Nephrology was consulted and PD was performed while here in the hospital stay. He was found to have elevated troponin, prompting Cardiology consultation. The patient underwent a left heart cath, found to have diffuse coronary disease needing transfer to the [facility] for a CABG evaluation. I discussed this case with Dr. Van, Cardiology and recommend higher level of care to a tertiary center in the [facility] in the event of any complications. The patient is very high risk for CABG and recommend transfer to the [facility]. On 01/01/2020, the patient was then transferred to the [facility] for higher level of care for a cardiovascular workup and evaluation for CABG. On discharge, the patient was doing well and back to normal baseline with no complaints. He was stable prior to being discharged. On day of discharge, vital signs were stable, labs reviewed and stable. The patient was seen, evaluated, examined thoroughly on the day of discharge. No other complaints. The patient verbalized understanding and agrees to plan of care and follow up accordingly as an outpatient when upon discharge from the [facility]. MEDICATIONS: See med reconciliation form. DISPOSITION: Transfer to [facility] for CABG evaluation. CONDITION: Stable. DIET: Heart healthy. In the event of any worsening symptoms, the patient was advised to come back to the ED for further evaluation. Discharge summary took greater than 35 minutes. Once again, the patient was transferred to [facility] for CABG evaluation as per recommendations by the supervisor cooler service. The patient is very high risk for procedure, hence to transfer to the [facility] for further evaluation and monitoring. MD LEIGHANN Zapien/MODL /[id number]
== END 2020-01-01 20:25 | disposition short-term general hospital (02) | DRG 286 ==
LOC: ER 21:56 → ERHOLD 12-31 00:01 → MED/SURG3 12-31 12:07
PROVIDERS: ADMIT Internal Medicine; ATTEND Internal Medicine
PROC: 3E1M39Z Irrigation of Peritoneal Cavity using Dialysate, Percutaneous Approach (ICD-10-PCS; 2019-12-31)
PROC: 4A023N7 Measurement of Cardiac Sampling and Pressure, Left Heart, Percutaneous Approach (ICD-10-PCS; principal; 2020-01-01)
PROC: B2111ZZ Fluoroscopy of Multiple Coronary Arteries using Low Osmolar Contrast (ICD-10-PCS; 2020-01-01)
PROC: B2151ZZ Fluoroscopy of Left Heart using Low Osmolar Contrast (ICD-10-PCS; 2020-01-01)
DX: I13.2 Hypertensive heart and chronic kidney disease with heart failure and with stage 5 chronic kidney disease, or end stage renal disease (principal); J18.9 Pneumonia, unspecified organism; N18.6 End stage renal disease; I50.21 Acute systolic (congestive) heart failure; Z68.41 Body mass index [BMI] 40.0-44.9, adult; I25.10 Atherosclerotic heart disease of native coronary artery without angina pectoris; E66.01 Morbid (severe) obesity due to excess calories; E11.22 Type 2 diabetes mellitus with diabetic chronic kidney disease; Z99.2 Dependence on renal dialysis; E78.5 Hyperlipidemia, unspecified; J45.909 Unspecified asthma, uncomplicated; D63.1 Anemia in chronic kidney disease
CPT/HCPCS: 36415; 71045; 80048; 80053; 81001; 82550; 82553; 82948; 83036; 83518; 83605; 84100; 84439; 84443; 84484; 85025; 85610; 85730; 87040; 87070; 87086; 87400; 90962; 93005; 93306; 93458; 94640; 96372; 99152; 99153; 99285; C1760; C1769; J0456; J1644; J2001; J2250; J3010; J7030; J7050; Q9967

== ENCOUNTER → 2020-08-01 | Outpatient (CLI) | payer MEDICARE, OTHER ==
[~2020-08-01] MED LIST changes: +ASPIRIN EC81 MG PO; +CALCIUM ACETAT667 M1 PO; +CARVEDILOL6.25 MG PO; +FUROSEMIDE80 MG PO; +GENTAMICIN SULF15 GM TOP; +TUMS200 MG PO
== END ==
LOC: RAD 11:00
PROVIDERS: ATTEND Internal Medicine Cardiovascular Disease
DX: R06.02 Shortness of breath (principal); I50.9 Heart failure, unspecified; I51.7 Cardiomegaly
CPT/HCPCS: 71046

== ENCOUNTER → 2020-12-17 | Day surgery (SDC) | payer MEDICARE, OTHER ==
[2020-12-12 09:45] LABS: BASOPHILS % 0.8 % (0.0-1.0); EOSINOPHILS # (AUTO) 0.3 (0.0-0.4); EOSINOPHILS % 6.1 % (0.0-6.0); HEMATOCRIT 37.5 % (38.2-49.6); LYMPHOCYTES # (AUTO) 0.7 (1.0-3.2); LYMPHOCYTES % 14.7 % (18.0-39.1); MEAN CORPUSCULAR HEMOGLOBIN 28.2 pg (28-32); MONOCYTES # (AUTO) 0.6 (0.2-0.8); NEUTROPHILS # (AUTO) 3.1 (2.1-6.9); PLATELET COUNT 141 x10e3/uL (140-360); RED BLOOD COUNT 4.26 x10e6/uL (4.3-5.7)
[2020-12-12 10:07] LABS: ALBUMIN 2.6 g/dL (3.5-5.0); ALBUMIN/GLOBULIN RATIO 0.7 (0.8-2.0); ANION GAP 17.5 mmol/L (8-16); CALCIUM 7.6 mg/dL (8.4-10.2); CREATININE, SERUM 10.09 mg/dL (0.72-1.25); POTASSIUM 4.5 mmol/L (3.5-5.1)
[2020-12-12 11:04] LABS: INR 1.04; PROTHROMBIN TIME 14.3 seconds (11.9-14.5)
[~2020-12-17] VITALS: Ht 188 cm; Wt 136.1 kg
[2020-12-17] VITALS (7 sets, daily range): BP systolic 123–146; BP diastolic 62–96
[~2020-12-17] MED LIST changes: +FENTANYL CITRATE/PF 100MCG/2 ML INJ ONE; +LIDOCAINE HCL 2% LOCAL 20 ML VIAL ONE; +MIDAZOLAM HCL 2 MG/2 ML VIAL ONE; +SODIUM CHLORIDE 0.9% 1000ML 2,000 ML ONE; +SODIUM CHLORIDE 0.9% 500ML 500 ML ONE; +VANCOMYCIN 1GM/NS 250 ML 500 ML ONE
== END | disposition home or self-care (01) ==
LOC: CATH LAB 05:49
PROVIDERS: ATTEND Internal Medicine
DX: I25.5 Ischemic cardiomyopathy (principal); E11.22 Type 2 diabetes mellitus with diabetic chronic kidney disease; I13.2 Hypertensive heart and chronic kidney disease with heart failure and with stage 5 chronic kidney disease, or end stage renal disease; N18.6 End stage renal disease; I50.41 Acute combined systolic (congestive) and diastolic (congestive) heart failure; I25.2 Old myocardial infarction; Z01.810 Encounter for preprocedural cardiovascular examination; Z01.812 Encounter for preprocedural laboratory examination; Z20.822 Contact with and (suspected) exposure to COVID-19; Z79.4 Long term (current) use of insulin; Z79.82 Long term (current) use of aspirin
CPT/HCPCS: 33270; 36415 ×2; 71045; 80053; 82948; 85025; 85610; 93005; C1721; C1777; J2001; J2250; J3010; J3370; J7030; J7040; U0002; 33249; 99152; 99153; C1722

== ENCOUNTER 2021-01-14 11:32 | Emergency (ER) | payer MEDICARE, OTHER ==
[~2021-01-14] VITALS: Ht 190.5 cm; Wt 136.1 kg
[~2021-01-14 11:32] MED LIST changes: -FENTANYL CITRATE/PF 100MCG/2 ML INJ ONE; -LIDOCAINE HCL 2% LOCAL 20 ML VIAL ONE; -MIDAZOLAM HCL 2 MG/2 ML VIAL ONE; -SODIUM CHLORIDE 0.9% 1000ML 2,000 ML ONE; -SODIUM CHLORIDE 0.9% 500ML 500 ML ONE; -VANCOMYCIN 1GM/NS 250 ML 500 ML ONE
[2021-01-14] MEDS ORDERED: MECLIZINE HCL 12.5 MG TAB PO STA (12:10)
[2021-01-14 12:20] LABS: BASOPHILS % 0.7 % (0.0-1.0); EOSINOPHILS # (AUTO) 0.1 (0.0-0.4); EOSINOPHILS % 3.1 % (0.0-6.0); HEMATOCRIT 36.1 % (38.2-49.6); LYMPHOCYTES # (AUTO) 0.7 (1.0-3.2); LYMPHOCYTES % 15.6 % (18.0-39.1); MEAN CORPUSCULAR HEMOGLOBIN 29.4 pg (28-32); MEAN CORPUSCULAR HGB CONC 33.2 g/dL (31-35); MEAN CORPUSCULAR VOLUME 88.5 fL (81-99); MONOCYTES # (AUTO) 0.5 (0.2-0.8); MONOCYTES % 10.9 % (4.4-11.3); NEUTROPHILS # (AUTO) 3.1 (2.1-6.9); NEUTROPHILS % 69.3 % (38.7-80.0); PLATELET COUNT 165 x10e3/uL (140-360); RED BLOOD COUNT 4.08 x10e6/uL (4.3-5.7); RED CELL DISTRIBUTION WIDTH 14.8 % (11.7-14.4)
[2021-01-14 12:50] LABS: ALBUMIN 2.6 g/dL (3.5-5.0); ALBUMIN/GLOBULIN RATIO 0.6 (0.8-2.0); ANION GAP 20.8 mmol/L (8-16); CALCIUM 7.6 mg/dL (8.4-10.2); CREATININE, SERUM 10.21 mg/dL (0.72-1.25); POTASSIUM 3.8 mmol/L (3.5-5.1)
[2021-01-14] MEDS ORDERED: MECLIZINE HCL12.5 MG PO (13:17)
[2021-01-14 13:52] VITALS: BP 134/82
== END 2021-01-14 13:53 | disposition home or self-care (01) ==
LOC: ER 12:03
DX: R42 Dizziness and giddiness (principal); R06.02 Shortness of breath; E11.22 Type 2 diabetes mellitus with diabetic chronic kidney disease; E11.65 Type 2 diabetes mellitus with hyperglycemia; I10 Essential (primary) hypertension
CPT/HCPCS: 36415; 70450; 80053; 84484; 85025; 93005; 99284; J8597

== ENCOUNTER 2021-03-13 10:46 | Inpatient (IN) | payer MEDICARE, OTHER ==
[~2021-03-13] VITALS: Ht 190.5 cm; Wt 136.1 kg
[~2021-03-13 10:46] MED LIST changes: +MECLIZINE HCL12.5 MG PO
[2021-03-13] MEDS ORDERED: SODIUM CHLORIDE 0.9% 1000ML 1,000 ML IV STA ×2 (10:59)
[2021-03-13] MEDS ORDERED: ASPIRIN 81 MG CHEW TAB PO ONE (11:00)
[2021-03-13] MEDS ORDERED: CEFEPIME HCL 1GM 1 GM in SODIUM CHLORIDE 0.9% 50ML 50 ML IV ONE (11:30)
[2021-03-13 12:05] LABS: BASOPHILS # (AUTO) 0.1 (0.0-0.1); BASOPHILS % 0.6 % (0.0-1.0); EOSINOPHILS # (AUTO) 0.2 (0.0-0.4); EOSINOPHILS % 2.3 % (0.0-6.0); HEMATOCRIT 41.2 % (38.2-49.6); LYMPHOCYTES # (AUTO) 0.8 (1.0-3.2); LYMPHOCYTES % 10.1 % (18.0-39.1); MEAN CORPUSCULAR HEMOGLOBIN 29.4 pg (28-32); MEAN CORPUSCULAR VOLUME 86.6 fL (81-99); MONOCYTES # (AUTO) 0.6 (0.2-0.8); NEUTROPHILS % 78.4 % (38.7-80.0); PLATELET COUNT 220 x10e3/uL (140-360); RED BLOOD COUNT 4.76 x10e6/uL (4.3-5.7); RED CELL DISTRIBUTION WIDTH 13.9 % (11.7-14.4)
[2021-03-13] MEDS ORDERED: ENTRESTO 24 MG1 EACH PO (12:38)
[2021-03-13] MEDS ORDERED: CALCITRIOL0.5 MCG PO (12:38)
[2021-03-13] MEDS ORDERED: COREG3.125 MG PO (12:38)
[2021-03-13] MEDS ORDERED: FUROSEMIDE80 MG PO (12:38)
[2021-03-13] MEDS ORDERED: SODIUM BICARBO650 MG PO (12:38)
[2021-03-13 12:51] LABS: ALBUMIN 2.4 g/dL (3.5-5.0); ALBUMIN/GLOBULIN RATIO 0.5 (0.8-2.0); ANION GAP 23.5 mmol/L (8-16); CREATININE, SERUM 9.13 mg/dL (0.72-1.25); POTASSIUM 3.5 mmol/L (3.5-5.1)
[2021-03-13 12:52] LABS: CALCIUM 8.9 mg/dL (8.4-10.2)
[2021-03-13] MEDS ORDERED: VANCOMYCIN 1GM/NS 250 ML 250 ML IV STA (12:58)
[2021-03-13 12:59] LABS: CREATINE KINASE MB 3.4 ng/mL (0-5.0)
[2021-03-13] MEDS ORDERED: CEFTRIAXONE SOD 1 GM VIAL IV SCH (13:45)
[2021-03-13] MEDS ORDERED: DEXTROSE 50% SYRINGE 50 ML IV PRN (13:45)
[2021-03-13] MEDS ORDERED: CEFTRIAXONE SOD 1 GM in SODIUM CHLORIDE 0.9% 50ML 50 ML IV SCH (14:00)
[2021-03-13] MEDS ORDERED: NOREPINEPHRINE 8 MG/D5W 250 ML 250 ML ONE (14:57)
[2021-03-13] MEDS: NOREPINEPHRINE 8 MG/D5W 250 ML 250 ML IV SCH (14:58)
[2021-03-13] MEDS: CALCIUM ACETATE 667 MG GELCAP PO SCH ×2 (15:00→21:43)
[2021-03-13] MEDS: AZITHROMYCIN 500MG/NS 250 ML 250 ML IV SCH (15:40)
[2021-03-13] MEDS ORDERED: FUROSEMIDE INJ 10 MG/ML 4 ML VIAL IV ONE (16:45)
[2021-03-13] MEDS ORDERED: CALCITRIOL 0.5 MCG CAP PO SCH (17:00)
[2021-03-13] MEDS: PIPERACILLIN/TAZOBACTAM 2.25 GM in SODIUM CHLORIDE 0.9% 50ML 50 ML IV SCH (17:12)
[2021-03-13] MEDS: CALCITRIOL 0.25 MCG CAP PO SCH (17:26)
[2021-03-13] MEDS: INSULIN REGULAR, HUMAN 100 UNIT/1 ML 3ML VIAL SQ SCH ×2 (17:34→21:45)
[2021-03-13] MEDS ORDERED: AMIODARONE HCL200 MG PO (18:18)
[2021-03-13] MEDS: INSULIN GLARGINE 100 UNITS/ML VIAL SQ SCH (21:45)
[2021-03-14] MEDS: PIPERACILLIN/TAZOBACTAM 2.25 GM in SODIUM CHLORIDE 0.9% 50ML 50 ML IV SCH ×3 (00:40→18:22)
[2021-03-14] MEDS: INSULIN REGULAR, HUMAN 100 UNIT/1 ML 3ML VIAL SQ SCH ×4 (08:42→21:10)
[2021-03-14 08:49] LABS: BASOPHILS % 0.7 % (0.0-1.0); EOSINOPHILS # (AUTO) 0.2 (0.0-0.4); EOSINOPHILS % 3.1 % (0.0-6.0); HEMATOCRIT 36.9 % (38.2-49.6); HEMOGLOBIN 12.5 g/dL (14.0-18.0); LYMPHOCYTES # (AUTO) 0.7 (1.0-3.2); LYMPHOCYTES % 11.2 % (18.0-39.1); MEAN CORPUSCULAR HEMOGLOBIN 29.8 pg (28-32); MEAN CORPUSCULAR HGB CONC 33.9 g/dL (31-35); MEAN CORPUSCULAR VOLUME 88.1 fL (81-99); MONOCYTES # (AUTO) 0.6 (0.2-0.8); MONOCYTES % 10.5 % (4.4-11.3); NEUTROPHILS # (AUTO) 4.5 (2.1-6.9); NEUTROPHILS % 73.8 % (38.7-80.0); PLATELET COUNT 166 x10e3/uL (140-360); RED BLOOD COUNT 4.19 x10e6/uL (4.3-5.7); RED CELL DISTRIBUTION WIDTH 14.1 % (11.7-14.4)
[2021-03-14] MEDS: CALCIUM ACETATE 667 MG GELCAP PO SCH ×3 (09:00→20:18)
[2021-03-14] MEDS: SODIUM BICARBONATE 650 MG TAB PO SCH (09:00)
[2021-03-14] MEDS: ASPIRIN 81 MG ENTERIC COATED PO SCH (09:00)
[2021-03-14 09:09] LABS: ALBUMIN/GLOBULIN RATIO 0.5 (0.8-2.0); ANION GAP 17.7 mmol/L (8-16); CALCIUM 7.9 mg/dL (8.4-10.2); CREATININE, SERUM 8.73 mg/dL (0.72-1.25); POTASSIUM 3.7 mmol/L (3.5-5.1)
[2021-03-14 14:00] VITALS: BP 111/65
[2021-03-14] MEDS: NOREPINEPHRINE 8 MG/D5W 250 ML 250 ML IV SCH (14:45)
[2021-03-14 15:49] VITALS: BP 109/65
[2021-03-14 17:51] LABS: ABG HCO3 25 mmol/L (22-26); ABG PCO2 38 mmHg (35-45); ABG PH 7.42 (7.35-7.45); ABG PO2 55 mmHg (80-105); ABG TCO2 26
[2021-03-14] MEDS ORDERED: SODIUM CHLORIDE 0.9% 250ML 250 ML ONE (18:27)
[2021-03-14] MEDS: AZITHROMYCIN 500MG/NS 250 ML 250 ML IV SCH (19:21)
[2021-03-14 20:03] VITALS: BP 128/60
[2021-03-14 20:20] VITALS: BP 128/60
[2021-03-14] MEDS: INSULIN GLARGINE 100 UNITS/ML VIAL SQ SCH (21:20)
[2021-03-15] VITALS (9 sets, daily range): BP systolic 104–127; BP diastolic 49–74
[2021-03-15] MEDS: PIPERACILLIN/TAZOBACTAM 2.25 GM in SODIUM CHLORIDE 0.9% 50ML 50 ML IV SCH ×3 (00:50→17:24)
[2021-03-15 06:17] LABS: BASOPHILS # (AUTO) 0.1 (0.0-0.1); BASOPHILS % 0.9 % (0.0-1.0); EOSINOPHILS # (AUTO) 0.4 (0.0-0.4); EOSINOPHILS % 5.4 % (0.0-6.0); HEMATOCRIT 36.6 % (38.2-49.6); HEMOGLOBIN 12.2 g/dL (14.0-18.0); LYMPHOCYTES % 14.8 % (18.0-39.1); MEAN CORPUSCULAR HEMOGLOBIN 29.1 pg (28-32); MEAN CORPUSCULAR HGB CONC 33.3 g/dL (31-35); MEAN CORPUSCULAR VOLUME 87.4 fL (81-99); MONOCYTES # (AUTO) 0.8 (0.2-0.8); MONOCYTES % 11.4 % (4.4-11.3); NEUTROPHILS # (AUTO) 4.4 (2.1-6.9); NEUTROPHILS % 66.9 % (38.7-80.0); PLATELET COUNT 173 x10e3/uL (140-360); RED BLOOD COUNT 4.19 x10e6/uL (4.3-5.7); RED CELL DISTRIBUTION WIDTH 13.9 % (11.7-14.4)
[2021-03-15 06:45] LABS: ANION GAP 21.4 mmol/L (8-16); CALCIUM 7.7 mg/dL (8.4-10.2); CREATININE, SERUM 9.07 mg/dL (0.72-1.25); POTASSIUM 3.4 mmol/L (3.5-5.1)
[2021-03-15] MEDS: INSULIN REGULAR, HUMAN 100 UNIT/1 ML 3ML VIAL SQ SCH ×4 (08:25→21:00)
[2021-03-15] MEDS: ASPIRIN 81 MG ENTERIC COATED PO SCH (09:32)
[2021-03-15] MEDS: CALCIUM ACETATE 667 MG GELCAP PO SCH ×3 (09:32→21:12)
[2021-03-15] MEDS: SODIUM BICARBONATE 650 MG TAB PO SCH (09:32)
[2021-03-15] MEDS ORDERED: CHOLESTYRAMINE 4 GM PACKET PO ONE (11:00)
[2021-03-15] MEDS: LACTOBACILLUS ACIDOPHILUS CAPSULE PO SCH ×3 (12:41→21:12)
[2021-03-15] MEDS: AMIODARONE HCL 200 MG TAB PO SCH (17:27)
[2021-03-15] MEDS: CARVEDILOL 3.125 MG TAB PO SCH (17:27)
[2021-03-15] MEDS: AZITHROMYCIN 500MG/NS 250 ML 250 ML IV SCH (18:23)
[2021-03-15] MEDS ORDERED: INSULIN GLARGINE 100 UNITS/ML VIAL SQ SCH ×2 (21:00)
[2021-03-15] MEDS: CHOLESTYRAMINE 4 GM PACKET PO PRN (22:26)
[2021-03-16] VITALS (9 sets, daily range): BP systolic 114–161; BP diastolic 41–84
[2021-03-16] MEDS: PIPERACILLIN/TAZOBACTAM 2.25 GM in SODIUM CHLORIDE 0.9% 50ML 50 ML IV SCH ×2 (00:51→09:23)
[2021-03-16] MEDS: CHOLESTYRAMINE 4 GM PACKET PO PRN (07:47)
[2021-03-16] MEDS: INSULIN REGULAR, HUMAN 100 UNIT/1 ML 3ML VIAL SQ SCH ×3 (08:36→16:30)
[2021-03-16] MEDS: SODIUM BICARBONATE 650 MG TAB PO SCH (09:23)
[2021-03-16] MEDS: AMIODARONE HCL 200 MG TAB PO SCH ×2 (09:23→16:58)
[2021-03-16] MEDS: ASPIRIN 81 MG ENTERIC COATED PO SCH (09:23)
[2021-03-16] MEDS: CALCIUM ACETATE 667 MG GELCAP PO SCH ×3 (09:23→21:27)
[2021-03-16] MEDS: LACTOBACILLUS ACIDOPHILUS CAPSULE PO SCH ×3 (09:23→21:27)
[2021-03-16] MEDS: CALCITRIOL 0.25 MCG CAP PO SCH (10:00)
[2021-03-16] MEDS ORDERED: LEVOFLOXACIN 250 MG TAB PO SCH (11:00)
[2021-03-16] MEDS: CARVEDILOL 3.125 MG TAB PO SCH ×2 (12:07→16:58)
[2021-03-17] VITALS: BP 129/63
[2021-03-17 04:00] VITALS: BP 121/62
[2021-03-17 06:14] LABS: ANION GAP 19.2 mmol/L (8-16); CREATININE, SERUM 8.26 mg/dL (0.72-1.25); POTASSIUM 3.2 mmol/L (3.5-5.1)
[2021-03-17 06:58] LABS: FREE T4 (FREE THYROXINE) 0.84 ng/dL (0.8-1.8); THYROID STIMULATING HORMONE 1.832 uIU/mL (0.350-4.940)
[2021-03-17] MEDS ORDERED: INSULIN LISPRO 100 UNIT/1 ML 3ML VIAL SQ SCH ×3 (07:30→11:30)
[2021-03-17 07:47] VITALS: BP 128/82
[2021-03-17] MEDS: SODIUM BICARBONATE 650 MG TAB PO SCH (08:52)
[2021-03-17] MEDS: AMIODARONE HCL 200 MG TAB PO SCH (08:52)
[2021-03-17] MEDS: ASPIRIN 81 MG ENTERIC COATED PO SCH (08:52)
[2021-03-17] MEDS: CALCIUM ACETATE 667 MG GELCAP PO SCH (08:52)
[2021-03-17] MEDS: LACTOBACILLUS ACIDOPHILUS CAPSULE PO SCH (08:52)
[2021-03-17] MEDS: CARVEDILOL 3.125 MG TAB PO SCH (09:28)
[2021-03-17 11:25] VITALS: BP 129/82
[2021-03-17] MEDS ORDERED: INSULIN GLARGINE 100 UNITS/ML VIAL SQ SCH (21:00)
== END 2021-03-17 10:49 | disposition home or self-care (01) | DRG 871 ==
LOC: ER 13:14 → ERHOLD 14:31 → MED/SURG2 03-14 13:18
PROVIDERS: ADMIT Internal Medicine; ATTEND Internal Medicine
PROC: 3E1M39Z Irrigation of Peritoneal Cavity using Dialysate, Percutaneous Approach (ICD-10-PCS; principal; 2021-03-13)
PROC: 02HV33Z Insertion of Infusion Device into Superior Vena Cava, Percutaneous Approach (ICD-10-PCS; 2021-03-13)
PROC: 3E043XZ Introduction of Vasopressor into Central Vein, Percutaneous Approach (ICD-10-PCS; 2021-03-13)
PROC: 3E1M39Z Irrigation of Peritoneal Cavity using Dialysate, Percutaneous Approach (ICD-10-PCS; 2021-03-14)
PROC: 3E1M39Z Irrigation of Peritoneal Cavity using Dialysate, Percutaneous Approach (ICD-10-PCS; 2021-03-15)
PROC: 3E1M39Z Irrigation of Peritoneal Cavity using Dialysate, Percutaneous Approach (ICD-10-PCS; 2021-03-16)
DX: A41.9 Sepsis, unspecified organism (principal); R65.21 Severe sepsis with septic shock; I50.23 Acute on chronic systolic (congestive) heart failure; N18.6 End stage renal disease; J18.9 Pneumonia, unspecified organism; G92 Toxic encephalopathy; I13.2 Hypertensive heart and chronic kidney disease with heart failure and with stage 5 chronic kidney disease, or end stage renal disease; Z99.2 Dependence on renal dialysis; E11.22 Type 2 diabetes mellitus with diabetic chronic kidney disease; Z95.1 Presence of aortocoronary bypass graft; Z88.1 Allergy status to other antibiotic agents; E66.9 Obesity, unspecified; I25.10 Atherosclerotic heart disease of native coronary artery without angina pectoris; E87.6 Hypokalemia; Z98.84 Bariatric surgery status; Z95.810 Presence of automatic (implantable) cardiac defibrillator; D63.8 Anemia in other chronic diseases classified elsewhere; E11.65 Type 2 diabetes mellitus with hyperglycemia; E86.0 Dehydration; R19.7 Diarrhea, unspecified; Z68.37 Body mass index [BMI] 37.0-37.9, adult; Z79.82 Long term (current) use of aspirin; Z79.4 Long term (current) use of insulin
CPT/HCPCS: 36415; 36555; 36600; 70450; 71045; 80048; 80053; 82550; 82553; 82805; 82948; 83036; 83605; 83880; 84100; 84439; 84443; 84484; 85025; 87040; 93306; 99285; J0456; J0692; J1815; J1817; J1940; J2543; J3370; J7030; J7050; U0002